=== PATIENT | female | born 1995 | race Caucasian/White ===

== ENCOUNTER 2019-07-31 02:19 | Emergency (ER) | payer OTHER ==
[~2019-07-31] VITALS: Ht 144.8 cm; Wt 51.4 kg
[2019-07-31 02:30] VITALS: BP 101/74
--- NOTE | 2019-07-31 02:30 | NUR ---
23 Y/O FEMALE C/O 5/10 SHARP ABD PAIN WITH N/V, DIARRHEA X 1 DAY SINCE YESTERDAY. PATIENT STATES, " I WAS WATCHING TV AND ATE A CORN DOG, AND AFTER AN HOUR, MY STOMACH STARTING FEELING CRAMPY. I THREW UP YESTERDAY AND TODAY BEFORE I CAME TO THE HOSPITAL". MOTRIN 1500 YESTERDAY, NO RELIEF ABDOMEN SOFT AND FLAT. ABDOMINAL SOUNDS HEARD ON ALL FOUR QUADRANTS. PAIN UPON PALPATION. 5/10 ACUTE PAIN RADIATING FROM THE EPIGASTRIC TO THE FLANKS AND LOWER BACK. ERMD MADE AWARE OF STATUS. SIDE RAILSX1. VSS. PMH-- DENIES RX-- DENIES NKDA
--- NOTE | 2019-07-31 02:40 | NUR ---
AMBULATES TO BED 03 WITH STEADY GAIT IN UPRIGHT POSITION. URINE SAMPLE COLLECTED. REPORT GIVEN TO NE BWOERS AT BEDSIDE.
--- NOTE | 2019-07-31 02:47 | NUR ---
ERMD AT BEDSIDE EVALUATING PATIENT.
[2019-07-31] MEDS ORDERED: ONDANSETRON 4 MG ODT PO ONE (02:50)
[2019-07-31] MEDS ORDERED: KETOROLAC 60 MG/2 ML VIAL IM ONE (02:50)
[2019-07-31 03:06] VITALS: BP 101/74
--- NOTE | 2019-07-31 03:06 | NUR ---
KARLY okay to discharge patient.Patient discharged with v/s stable. Written and verbal after care instructions given and explained. Patient alert, oriented and verbalized understanding of instructions. Ambulatory with steady gait. All questions addressed prior to discharge. ID band removed. Patient advised to follow up with PMD. Rx of given. Patient educated on indication of medication including possible reaction and side effects. Opportunity to ask questions provided and answered.
== END 2019-07-31 03:06 | disposition home or self-care (01) ==
LOC: MED 02:19
DX: R10.13 Epigastric pain (principal); R11.2 Nausea with vomiting, unspecified; R19.7 Diarrhea, unspecified; Z98.890 Other specified postprocedural states
CPT/HCPCS: 81002; 81025; 96372; 99283; J1885; Q0162

== ENCOUNTER 2019-10-18 11:50 | Emergency (ER) | payer OTHER ==
[~2019-10-18] VITALS: Ht 144.8 cm; Wt 48.5 kg
[2019-10-18 12:11] VITALS: BP 108/72
--- NOTE | 2019-10-18 13:04 | NUR ---
Patient ambulated to bed 5 with family. RN evaluating patient at bedside.
--- NOTE | 2019-10-18 13:21 | NUR ---
C/O HACKING MOIST COUGH WITH INTERMITTENT FEVER X3 DAYS ALSO LOWER ABDOMINAL ACHE---
--- NOTE | 2019-10-18 13:45 | NUR ---
FLU SWAB COLLECTED AND WALKED TO LAB
[2019-10-18 14:53] VITALS: BP 108/72
--- NOTE | 2019-10-18 14:53 | NUR ---
Patient discharged with v/s stable. Written and verbal after care instructions given and explained. Patient alert, oriented and verbalized understanding of instructions. Ambulatory with steady gait. All questions addressed prior to discharge. ID band removed. Patient advised to follow up with PMD. Rx of PROMETHAZINE given. Patient educated on indication of medication including possible reaction and side effects. Opportunity to ask questions provided and answered.
[2019-10-18 15:28] LABS: APPEARANCE,URINE CLOUDY (CLEAR); BILIRUBIN,URINE NEGATIVE (NEGATIVE); BLOOD, URINE TRACE-I (NEGATIVE); COLOR,URINE RED (YELLOW); LEUKOCYTE ESTERASE ,URINE NEGATIVE (NEGATIVE); NITRITE, URINE NEGATIVE (NEGATIVE); UGLUCOSE NEGATIVE (NEGATIVE)
[2019-10-18 15:33] LABS: RBC,URINE 0-5 /HPF (0-5); WBC,URINE 0 /HPF (0-5)
== END 2019-10-18 14:53 | disposition home or self-care (01) ==
LOC: MED 11:50
DX: J06.9 Acute upper respiratory infection, unspecified (principal)
CPT/HCPCS: 81001; 81025; 87804; 99283